=== PATIENT | female | born 1985 | race Two or more races ===

== ENCOUNTER 2016-07-30 10:28 | Emergency (ER) | payer OTHER ==
[2016-07-30 10:35] VITALS: TEMP 98.1
--- NOTE | 2016-07-30 10:45 | CPEKG ---
Heart Rate: 90 RR Interval: 667 P-R Interval: 140 QRSD Interval: 92 QT Interval: 356 QTC Interval: 436 P Latta: 40 QRS Latta: 39 T Wave Latta: 33 EKG Severity - NORMAL ECG - EKG Impression: SINUS RHYTHM Electronically Signed By: Tim Ortega 30-Jul-2016 10:49:16
[2016-07-30 10:55] LABS: % IMMATURE GRANULYOCYTES 0.6 % (0.0-1.1); ABSOLUTE IMMATURE GRANULOCYTES 0.06 10^3/uL (0.00-0.10); ADD DIFF? NO; ADD MORPH? NO; ADD SCAN? NO; ATYPICAL LYMPHOCYTE FLAG 10 (0-99); FRAGMENT RBC FLAG 0 (0-99); HEMATOCRIT 38.8 % (38.0-47.0); HEMOGLOBIN 13.1 g/dL (12.6-16.3); LEFT SHIFT FLG 0 (0-99); LIPEMIA HEMOLYSIS FLAG 90 (0-99); MEAN CELL HEMOGLOBIN 28.4 pg (27.9-34.1); MEAN CELL HEMOGLOBIN CONCENTR. 33.8 g/dL (32.4-36.7); MEAN CELL VOLUME 84.2 fL (81.5-99.8); MEAN PLATELET VOLUME 9.7 fL (8.7-11.7); PLATELET CLUMPS FLAG 0 (0-99); PLATELET COUNT 306 10^3/uL (150-400); RED BLOOD CELL COUNT 4.61 10^6/uL (4.18-5.33)
[2016-07-30 11:06] LABS: ANION GAP 14 mEq/L (8-16); CALCIUM 9.5 mg/dL (8.5-10.4); CARBON DIOXIDE 24 mEq/l (22-31); CHLORIDE 105 mEq/L (97-110); CREATININE 0.7 mg/dL (0.6-1.0); GLOMERULAR FILTRATION RATE > 60; GLUCOSE 110 mg/dL (70-100); POTASSIUM 3.6 mEq/L (3.5-5.2); SODIUM 143 mEq/L (134-144)
--- NOTE | 2016-07-30 11:06 | EDPHY ---
H & P Time Seen by Provider: 07/30/16 10:54 HPI/ROS: CHIEF COMPLAINT: Chest pain HISTORY OF PRESENT ILLNESS: 30-year-old female presents to the emergency department by private vehicle complaining of left anterior chest pain and pain in her left upper extremity since this morning. The patient states yesterday she had a bit of a headache and took some ibuprofen. She states this morning she was getting ready for work she developed squeezing pain in her chest radiating down her left arm. She feels tingling in her left hand. She did not take anything for the pain. She has never had this problem in the past. She does not know anything that makes it feel better or worse. She does feel mildly short of breath. She does have associated pain in the left side of her chest with deep breathing as well. No reported trauma. She does not smoke or do any recreational drugs she feels that the pain is a bit better since it started just a few hours ago although it is not resolved. Her father has had 2 myocardial infarctions in his 40s. REVIEW OF SYSTEMS: Constitutional: No fever, no chills. Eyes: No double or blurry vision. ENT: No sore throat. Respiratory: Shortness of breath as above. No cough. Cardiac: As above Gastrointestinal: No abdominal pain, vomiting or diarrhea. Genitourinary: No dysuria. Musculoskeletal: No neck or back pain. Skin: No rashes. Neurological: Headache now resolved Past Medical/Surgical History: Negative Smoking Status: Never smoked Physical Exam: General Appearance: Alert, no distress. 36.7, 100% on room air, 111/79, respirations 26, heart rate 81 Eyes: Pupils equal and round. Extraocular motions are all intact. ENT: Mouth: Mucous membranes moist. Respiratory: No wheezing, rhonchi, or rales, lungs are clear to auscultation. Unable to reproduce pain with palpation to the anterior aspect of the chest. Cardiovascular: Regular rate and rhythm. Gastrointestinal: Abdomen is soft and nontender, no masses, no rebound or guarding, bowel sounds normal. Neurological: Alert and oriented x 3, cranial nerves II through XII grossly intact Skin: Warm and dry, no rashes. Musculoskeletal: Nontender to palpate along the cervical, thoracic or lumbar spine. Neck is supple. Extremities: Full range of motion and no peripheral edema. Psychiatric: Patient is oriented X 3, there is no agitation. Constitutional: Initial Vital Signs Temperature (C) 36.7 C 07/30/16 10:31 Heart Rate 81 07/30/16 10:31 Respiratory Rate 26 H 07/30/16 10:31 Blood Pressure 111/79 07/30/16 10:31 O2 Sat (%) 100 07/30/16 10:31 O2 Delivery Mode Room Air Allergies/Adverse Reactions: No Known Allergies Allergy (Unverified 07/30/16 10:31) Home Medications: Medication Instructions Recorded NK [No Known Home Meds] 07/30/16 Medical Decision Making - Diagnostics EKG Interpretation: EKG reveals normal sinus rhythm with no acute ST T wave abnormalities. This is reviewed by Dr. Tim Ortega. See interpretation in trace master. Imaging: Chest x-ray reveals no acute pulmonary disease. This is reviewed by myself and the PAC system as well as by the radiologist. ED Course/Re-evaluation: 30-year-old female presents to the emergency department with chest pain. Laboratory studies including D-dimer and troponin were normal. The patient had onset of pain around 10:00 a.m.. Initial troponin was negative. The case was discussed with Dr. Tim Ortega recommended repeating troponin at 6:00 a.m. after the initial onset which could be at 4:00 p.m.. Repeat troponin was still negative. The patient had been given Toradol 30 mg IV and was feeling much better. She is comfortable being discharged home. I encouraged close follow-up with her primary care provider. Differential Diagnosis: Chest pain including but not limited to myocardial ischemia, pulmonary embolus, chest wall pain, pleural inflammation and pulmonary infectious causes. - Data Points Laboratory Results: Laboratory Results 07/30/16 10:40 07/30/16 10:40 07/30/16 07/30/16 15:57 10:40 WBC 9.56 H 10^3/uL (3.80-9.50) RBC 4.61 10^6/uL (4.18-5.33) Hgb 13.1 g/dL (12.6-16.3) Hct 38.8 % (38.0-47.0) MCV 84.2 fL (81.5-99.8) MCH 28.4 pg (27.9-34.1) MCHC 33.8 g/dL (32.4-36.7) RDW 13.0 % (11.5-15.2) Plt Count 306 10^3/uL (150-400) MPV 9.7 fL (8.7-11.7) Neut % (Auto) 69.1 % (39.3-74.2) Lymph % (Auto) 25.2 % (15.0-45.0) Emanuel % (Auto) 4.1 L % (4.5-13.0) Eos % (Auto) 0.6 % (0.6-7.6) Baso % (Auto) 0.4 % (0.3-1.7) Nucleat RBC Rel Count 0.0 % (0.0-0.2) Absolute Neuts (auto) 6.60 H 10^3/uL (1.70-6.50) Absolute Lymphs (auto) 2.41 10^3/uL (1.00-3.00) Absolute Monos (auto) 0.39 10^3/uL (0.30-0.80) Absolute Eos (auto) 0.06 10^3/uL (0.03-0.40) Absolute Basos (auto) 0.04 10^3/uL (0.02-0.10) Absolute Nucleated RBC 0.00 10^3/uL (0-0.01) Immature Gran % 0.6 % (0.0-1.1) Immature Gran # 0.06 10^3/uL (0.00-0.10) D-Dimer 0.47 ug/mLFEU (0.00-0.50) Sodium 143 mEq/L (134-144) Potassium 3.6 mEq/L (3.5-5.2) Chloride 105 mEq/L (97-110) Carbon Dioxide 24 mEq/l (22-31) Anion Gap 14 mEq/L (8-16) BUN 10 mg/dL (7-23) Creatinine 0.7 mg/dL (0.6-1.0) Estimated GFR > 60 Glucose 110 H mg/dL (70-100) Calcium 9.5 mg/dL (8.5-10.4) Troponin I < 0.012 ng/mL < 0.012 ng/mL (0-0.034) (0-0.034) Beta HCG, Qual NEGATIVE Medications Given: Discontinued Medications Ketorolac Tromethamine (Toradol) 30 mg IVP EDNOW ONE Stop: 07/30/16 11:38 Last Admin: 07/30/16 11:45 Dose: 30 mg Departure - Departure Disposition: Home, Routine, Self-Care Clinical Impression: Chest pain Qualifiers: Chest pain type: unspecified Qualifier Code: (R07.9) Chest pain, unspecified Condition: Good Instructions: Chest Pain (ED) Additional Instructions: Follow up with primary care provider to recheck. Return to the emergency department if you develop recurring chest pain, shortness of breath, or if you feel worse in any way. Activity as tolerated. Ibuprofen 600 mg every 8 hours as needed for pain. Sherwin un seguimiento con el proveedor de cuidado medico para un chequeo. Regrese al departamento de emergencias si desarolla dolor de pecho recurrente, si le falta la respiracion, o si se siente peor en cualquier sentido. Actividad kristin sea tolerada. Ibuprofen 600 mg cada 8 horas kristin sea necesario para el dolor. Referrals: [place],. [Primary Care Provider] - 1-2 days without fail Print Language: Upper Sorbian
[2016-07-30 11:17] LABS: TROPONIN I < 0.012 ng/mL (0-0.034)
[2016-07-30] MEDS ORDERED: KETOROLAC 30 MG/1 ML SDV IVP ONE (11:37)
--- NOTE | 2016-07-30 11:53 | DX ---
PA and Lateral Chest Indication: Pain Comparison: None Findings: The lungs are well aerated and clear. No pneumothorax, consolidation, or effusion. Heart si ze normal. Impression: Normal. No pneumothorax or acute process.
[2016-07-30 16:39] VITALS: PULSE 78
[2016-07-30 17:10] VITALS: BP 125/80; RESP 18; O2SAT 95
== END 2016-07-30 17:10 | disposition home or self-care (01) ==
DX: R07.89 Other chest pain (principal)
CPT/HCPCS: 96374; J1885

== ENCOUNTER 2016-08-02 12:33 | Emergency (ER) | payer OTHER ==
--- NOTE | 2016-08-02 15:08 | EDPHY ---
H & P Stated Complaint: sob/anxiety/hyperventilation(seen 3 days ago for same) Time Seen by Provider: 08/02/16 15:08 - Personal History LMP (Females 10-55): 15-21 Days Ago Current Tetanus/Diphtheria Vaccine: Yes - Medical/Surgical History Hx Asthma: No Hx Chronic Respiratory Disease: No Hx Diabetes: No Hx Cardiac Disease: No Hx Renal Disease: No Hx Cirrhosis: No Hx Alcoholism: No Hx HIV/AIDS: No Hx Splenectomy or Spleen Trauma: No Other PMH: anxiety - Social History Smoking Status: Never smoked Constitutional: Initial Vital Signs Temperature (C) 37 C 08/02/16 12:46 Heart Rate 90 08/02/16 12:46 Respiratory Rate 24 H 08/02/16 12:46 Blood Pressure 120/73 08/02/16 12:46 O2 Sat (%) 99 08/02/16 12:46 O2 Delivery Mode Room Air Allergies/Adverse Reactions: No Known Allergies Allergy (Verified 08/02/16 12:45) Home Medications: Medication Instructions Recorded Escitalopram Oxalate [Lexapro] 10 mg PO DAILY 30 Days 08/02/16 Hydroxyzine HCl 08/02/16 Medical Decision Making ED Course/Re-evaluation: CHIEF COMPLAINT: Anxiety attack HISTORY OF PRESENT ILLNESS: The patient is a Haitian-speaking 30 y/o female complaining of an episode of shortness of breath and hand tingling while working this morning. She began to feel short of breath, then developed tingling in both hands. She tried to calm herself down by continuing to work, but then "my hands went rigid and my mouth went numb." She denies obvious stressful event or medication changes preceding this episode, but has experienced these symptoms one year ago and again 3 days ago. She was evaluated here for her most recent episode and her work up including an EKG and chest x- ray were normal. She feels normal at time of assessment. History obtained via Haitian language path. REVIEW OF SYSTEMS: A 10 point review of systems was performed and is negative with the exception of the elements mentioned in the history of present illness. PHYSICAL EXAM: HR, BP, O2 Sat, RR. Temp noted General Appearance: Alert, well hydrated, appropriate, and non-toxic appearing. Head: Atraumatic without scalp tenderness or obvious injury Eyes: Pupils equal, round, reactive to light and accommodation, EOMI, no trauma , no injection. Ears: Clear bilaterally, no perforation, normal landmarks Nose: Atraumatic, no rhinorrhea, clear. Throat: There is no erythema or exudates, no lesions, normal tonsils, mucus membranes moist. Neck: Supple, 2+ carotid upstroke, nontender, no lymphadenopathy. Respiratory: No retractions, no distress, no wheezes, and no accessory muscle use. Lungs are clear to auscultation bilaterally. Cardiovascular: Regular rate and rhythm, no murmurs, rubs, or gallops. Bilateral carotid, radial, dorsalis pedis, and posterior tibial pulses intact. Good capillary refill all extremities. Gastrointestinal: Abdomen is soft, nontender, non-distended, no masses, no rebound, no guarding, no peritoneal signs. Musculoskeletal: Normal active ROM of all extremities, atraumatic. Neurological: Alert, appropriate, and interactive. The patient has normal DTRs and non-focal cranial nerves, motor, sensory, and cerebellar exam. Skin: No rashes, good turgor, no nodules on palpation. Past medical history: Denies Past surgical history: Denies Family history: Noncontributory Social history: Single mother. PCP: [facility] Prior medical records reviewed including ED visit 07/30/16 for similar symptoms. DIFFERENTIAL DIAGNOSIS: The differential diagnosis for the patient's shortness of breath and hand tingling included but was not limited to anxiety attack, hyperventilation, carpopedal spasms, myocardial infarction, and pulmonary embolus. MEDICAL DECISION MAKING: This is a healthy 30 y/o female who returns to the ED for the second time in 3 days for symptoms of an anxiety attack. Her work up then including EKG and chest x-ray was negative. She describes shortness of breath followed by classic carpopedal spasms that worsened as she began breathing faster. She feels normal at time of assessment. Her exam is unremarkable. Normal breath sounds, heart rate, and no current spasms. I've recommended starting Lexapro to help prevent recurrence of her symptoms. She will be discharged with a 30-day supply and referral to PCP for follow up in 2-3 weeks. She feels comfortable with this plan. Return precautions given. Departure - Departure Clinical Impression: Panic attack, Carpopedal spasm Instructions: Panic Attack (ED), Escitalopram (By mouth) Additional Instructions: 1. Your symptoms are consistent with an anxiety attack. The tingling in your hands is caused by breathing too quickly. 2. Take Lexapro as prescribed every day to help prevent your symptoms from recurring. It may take 3 or more week for this medication to begin to be effective. 3. Follow up with a primary care provider at [facility] in 2-3 weeks to determine if Lexapro will be a good senior care medication for you. Referrals: [facility] [Outside] - As per Instructions Prescriptions: Escitalopram Oxalate [Lexapro] 10 mg PO DAILY 30 Days Print Language: Haitian Report Scribed for: Jose Daniel Mack Report Scribed by: Becca Doll Date of Report: 08/02/16 Time of Report: 15:24
[2016-08-02 15:54] VITALS: BP 117/78; PULSE 70; RESP 16; TEMP 98.4; O2SAT 96
== END 2016-08-02 15:50 | disposition home or self-care (01) ==
DX: F41.0 Panic disorder [episodic paroxysmal anxiety] (principal); R29.0 Tetany